=== PATIENT | male | born 1980 | race American Indian/Alaskan Native ===

== ENCOUNTER 2018-12-05 15:53 | Emergency (ER) | payer SELFPAY ==
[2018-12-05 16:53] VITALS: BP 103/66
[2018-12-05 17:35] LABS: Bilirubin,Urine NEG (Negative); Blood,Urine NEG (Negative); Color,Urine Yellow (Yellow); Mucus,Urine FEW /HPF; Protein,Urine <15 mg/dL mg/dL (Negative); Urobilinogen,Urine < 2.0 mg/dL (<2.0)
[2018-12-05] MEDS ORDERED: ZOFRAN ODT PO ONE (21:31)
[2018-12-05] MEDS ORDERED: TORADOL IM ONE (21:31)
[2018-12-05] MEDS ORDERED: DECADRON IM ONE (21:31)
[2018-12-05] MEDS ORDERED: PERCOCET 5/325 PO ONE (21:31)
--- NOTE | 2018-12-05 22:31 | Emergency Department Report ---
ED Back Pain/Injury HPI - General Chief Complaint: Back Pain/Injury Stated Complaint: LOWER BACK PAIN Source: patient Limitations: No Limitations - History of Present Illness Initial Comments: Patient is a 38-year-old -[place] male with no past medical history presents to the ED complaining of acute onset of persistent severe low back pain that radiates to the left leg diffusely for the last 6 days. 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 Patient states that the pain has worsened in the last 3 days and that he is unable to sit down in the last 12 hours because of the pain. The patient denies fall, traumatic injury, numbness and tingling of her lower extremities bilaterally, urinary or bowel incontinence, saddle paresthesia, dizziness, chest pain, shortness of breath, hematuria, dysuria, testicular pain or neck pain and headache. MD Complaint: back pain -: Sudden, days(s) (6) Similar Symptoms Previously: No Place: work Radiation: left leg Severity: severe Severity scale (0 -10): 8 Quality: burning, sharp, stabbing, aching Consistency: constant Improves With: none, other (Standing upright) Worsens With: movement, walking Context: while lifting, turning/twisting, bending Associated Symptoms: denies other symptoms, difficulty walking. denies: confusion, weakness, chest pain, numbness, cough, difficulty urinating, diaphoresis, incontinence, fever/chills, constipation, headaches, abdominal pain, loss of appetite, nausea/vomiting, seizure - Related Data Previous Rx's Medication Instructions Recorded Last Taken Type Gabapentin [Neurontin] 300 mg PO Q12H PRN #30 cap 12/05/18 Unknown Rx Ibuprofen [Motrin] 800 mg PO Q8HR PRN #20 tablet 12/05/18 Unknown Rx Metaxalone [Skelaxin] 800 mg PO Q8H PRN #21 tablet 12/05/18 Unknown Rx predniSONE [Deltasone] 60 mg PO QDAY #15 tab 12/05/18 Unknown Rx traMADol [Ultram] 50 mg PO Q6HR PRN #15 tablet 12/05/18 Unknown Rx Allergies Allergy/AdvReac Type Severity Reaction Status Date / Time No Known Allergies Allergy Unverified 12/05/18 15:54 ED Review of Systems ROS: Stated complaint: LOWER BACK PAIN Other details as noted in HPI Constitutional: denies: chills, fever Eyes: denies: eye pain, eye discharge, vision change ENT: denies: ear pain, throat pain Respiratory: denies: cough, shortness of breath, wheezing Cardiovascular: denies: chest pain, palpitations Endocrine: no symptoms reported Gastrointestinal: denies: abdominal pain, nausea, diarrhea Genitourinary: denies: urgency, dysuria Musculoskeletal: back pain, arthralgia, myalgia. denies: joint swelling Skin: denies: rash, lesions Neurological: denies: headache, weakness, paresthesias Psychiatric: denies: anxiety, depression Hematological/Lymphatic: denies: easy bleeding, easy bruising ED Past Medical Hx - Past Medical History Previous Medical History?: No - Surgical History Past Surgical History?: No - Social History Smoking Status: Current Every Day Smoker Substance Use Type: None, Marijuana - Medications Home Medications: Home Medications Medication Instructions Recorded Confirmed Last Taken Type Gabapentin [Neurontin] 300 mg PO Q12H PRN #30 cap 12/05/18 Unknown Rx Ibuprofen [Motrin] 800 mg PO Q8HR PRN #20 tablet 12/05/18 Unknown Rx Metaxalone [Skelaxin] 800 mg PO Q8H PRN #21 tablet 12/05/18 Unknown Rx predniSONE [Deltasone] 60 mg PO QDAY #15 tab 12/05/18 Unknown Rx traMADol [Ultram] 50 mg PO Q6HR PRN #15 tablet 12/05/18 Unknown Rx ED Physical Exam - General Limitations: No Limitations General appearance: alert, in no apparent distress - Head Head exam: Present: atraumatic, normocephalic, normal inspection - Eye Eye exam: Present: normal appearance, PERRL, EOMI. Absent: scleral icterus, conjunctival injection, nystagmus, periorbital swelling Pupils: Present: normal accommodation - ENT ENT exam: Present: normal exam, normal orophraynx, mucous membranes moist, TM's normal bilaterally, normal external ear exam - Neck Neck exam: Present: normal inspection, full ROM. Absent: tenderness, meningismus, lymphadenopathy, thyromegaly - Respiratory Respiratory exam: Present: normal lung sounds bilaterally. Absent: respiratory distress, wheezes, rales, rhonchi, stridor, chest wall tenderness, accessory muscle use, decreased breath sounds, prolonged expiratory - Cardiovascular Cardiovascular Exam: Present: regular rate, normal rhythm, normal heart sounds. Absent: systolic murmur, diastolic murmur, rubs, gallop - GI/Abdominal GI/Abdominal exam: Present: soft, normal bowel sounds. Absent: distended, tenderness, guarding, rebound, hyperactive bowel sounds, hypoactive bowel sounds, organomegaly, mass - Rectal Rectal exam: Present: deferred - Extremities Exam Extremities exam: Present: normal inspection, full ROM, tenderness (left leg), normal capillary refill - Back Exam Back exam: Present: normal inspection, tenderness (Palpable lumbosacral paraspinal musculoskeletal tenderness), muscle spasm, paraspinal tenderness. Absent: full ROM (due to pain) - Neurological Exam Neurological exam: Present: alert, oriented X3, CN II-XII intact, normal gait, reflexes normal - Psychiatric Psychiatric exam: Present: normal affect, normal mood - Skin Skin exam: Present: warm, dry, intact, normal color. Absent: rash ED Course Vital Signs 12/05/18 16:52 Temperature 97.8 F Pulse Rate 16 L Respiratory 16 Rate Blood Pressure 103/66 O2 Sat by Pulse 100 Oximetry - Reevaluation(s) Reevaluation #1: 12/05/18 22:46 Patient is alert and oriented 3 and is not in distress with normal vital signs. Patient is treated for pain in the ED and on reevaluation, patient's pain is well-controlled, and was discharged home on pain medications and muscle relaxants, and advised to follow-up with his primary care physician in 5-7 days for reevaluation. Patient was advised to return to the ED immediately if s ymptoms get worse. ED Medical Decision Making - Medical Decision Making Patient is alert and oriented 3 and is not in distress with normal vital signs. Patient is treated for pain in the ED and on reevaluation, patient's pain is well-controlled, and was discharged home on pain medications and muscle relaxants, and advised to follow-up with his primary care physician in 5-7 days for reevaluation. Patient was advised to return to the ED immediately if symptoms get worse. - Differential Diagnosis Acute low back pain with sciatica; Muscle spasm of back Critical care attestation.: If time is entered above; I have spent that time in minutes in the direct care of this critically ill patient, excluding procedure time. ED Disposition Clinical Impression: Spasm of muscle of lower back Acute low back pain with sciatica Qualifiers: Back pain laterality: left Sciatica laterality: sciatica of left side Qualified Code(s): M54.42 - Lumbago with sciatica, left side Disposition: TO HOME OR SELFCARE Is pt being admited?: No Does the pt Need Aspirin: No Condition: Stable Instructions: Acute Low Back Pain (ED), Muscle Spasm (ED), Sciatica (ED) Additional Instructions: Take medications with food, drink plenty of fluids and follow up with your Primary Care Physician as advised. Return to the ED immediately if symptoms get worse. Prescriptions: predniSONE [Deltasone] 60 mg PO QDAY #15 tab Ibuprofen [Motrin] 800 mg PO Q8HR PRN #20 tablet PRN Reason: Pain , Severe (7-10) Gabapentin [Neurontin] 300 mg PO Q12H PRN #30 cap PRN Reason: Pain , Severe (7-10) Metaxalone [Skelaxin] 800 mg PO Q8H PRN #21 tablet PRN Reason: Spasms traMADol [Ultram] 50 mg PO Q6HR PRN #15 tablet PRN Reason: Pain Referrals: DORA PERAZA MD [Primary Care Provider] - 3-5 Days [facility] [Outside] - 3-5 Days Forms: Work/School Release Form(ED) Time of Disposition: 22:31 Print Language: EGYPTIAN
== END 2018-12-05 22:45 | disposition home or self-care (01) ==
LOC: ED 15:53
DX: M54.42 Lumbago with sciatica, left side (principal); F17.200 Nicotine dependence, unspecified, uncomplicated; Z12.10 Encounter for screening for malignant neoplasm of intestinal tract, unspecified; Z79.1 Long term (current) use of non-steroidal anti-inflammatories (NSAID); Z79.899 Other long term (current) drug therapy; X50.0XXA Overexertion from strenuous movement or load, initial encounter; Y93.89 Activity, other specified; Y92.89 Other specified places as the place of occurrence of the external cause; Y99.8 Other external cause status
CPT/HCPCS: 81001; 96372; 99283; J1100; J1885; Q0162